=== PATIENT | female | born 1985 | race Caucasian/White ===

== ENCOUNTER 2017-01-13 12:54 | Emergency (ER) | payer MEDICAID ==
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
== END 2017-01-13 13:41 | disposition disaster alternative care site (69) ==
LOC: GACC 12:54
DX: O9A.211 Injury, poisoning and certain other consequences of external causes complicating pregnancy, first trimester (principal); S50.11XA Contusion of right forearm, initial encounter; J45.909 Unspecified asthma, uncomplicated; Z90.49 Acquired absence of other specified parts of digestive tract; V49.50XA Passenger injured in collision with unspecified motor vehicles in traffic accident, initial encounter

== ENCOUNTER 2017-01-15 21:23 | Emergency (ER) | payer MEDICAID ==
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
== END 2017-01-15 21:59 | disposition disaster alternative care site (69) ==
LOC: GACC 21:23
DX: O9A.311 Physical abuse complicating pregnancy, first trimester (principal); S30.1XXA Contusion of abdominal wall, initial encounter; O99.330 Smoking (tobacco) complicating pregnancy, unspecified trimester; F17.210 Nicotine dependence, cigarettes, uncomplicated; O99.519 Diseases of the respiratory system complicating pregnancy, unspecified trimester; J45.909 Unspecified asthma, uncomplicated; Z90.49 Acquired absence of other specified parts of digestive tract; W23.0XXA Caught, crushed, jammed, or pinched between moving objects, initial encounter; Z3A.08 8 weeks gestation of pregnancy